=== PATIENT | male | born 1950 | race Caucasian/White ===

== ENCOUNTER 2024-03-02 16:20 | Emergency (ER) | payer MEDICARE, OTHER ==
[2024-03-02 16:36] VITALS: BP 167/86; O2SAT 100
--- NOTE | 2024-03-02 18:51 | ED Physician Documentation ---
History of Present Illness - Stated complaint Stated Complaint: RT HAND LAC/HEAD INJ - Chief complaint Chief Complaint: Laceration - History obtained from History obtained from: Patient, Family () - History of Present Illness Timing: Prior to arrival - Additonal information Additional information: Patient is a 73-year-old male presenting to the emergency department after about an hour prior to arrival patient was on a tractor when he stepped out he slipped and fell about 3 feet to the ground. He is sustained small abrasion to his right ear where his glasses sit and laceration to his right base of his thumb. He notes persistent bleeding but no numbness or tingling.Patient did not lose consciousness he is not on blood thinners. He denies any neck pain. PD PAST MEDICAL HISTORY - Past Medical History Past Medical History: Yes Cardiovascular: High cholesterol Respiratory: None Neuro: None Endocrine/Autoimmune: None GI: None : None HEENT: None Psych: None Musculoskeletal: Chronic back pain Derm: None - Past Surgical History Past Surgical History: Yes Ortho: Shoulder arthroplasty, Spine surgery - Present Medications Home Medications: Ambulatory Orders Medication Instructions Recorded Confirmed Atorvastatin [Lipitor] 20 mg PO QPM 03/02/24 03/02/24 Bacitracin Zinc Oint 1 applic TOP BID #1 each 03/02/24 Cyclobenzaprine [Flexeril] 10 mg PO TID PRN 03/02/24 03/02/24 Gabapentin [Neurontin] 600 mg PO HS 03/02/24 03/02/24 Meloxicam 15 mg PO DAILY PRN 03/02/24 03/02/24 - Allergies Allergies/Adverse Reactions: Allergies Allergy/AdvReac Type Severity Reaction Status Date / Time erythromycin base Allergy Itching Verified 03/02/24 16:24 meperidine [From Demerol] Allergy Itching Verified 03/02/24 16:24 - Social History Does the pt smoke?: Yes Smoking Status: Current every day smoker Does the pt drink ETOH?: Yes Does the pt have substance abuse?: Yes Substance Use and Type: Marijuana - Immunizations Immunizations are current?: Yes - POLST Patient has POLST: No PD ED PE NORMAL - Vitals Vital signs reviewed: Yes - General General: Alert and oriented X 3 - HEENT HEENT: Atraumatic, Other (Right abrasion to lateral portion of right head. No signs of bleeding, no signs of hematoma) - Neck Neck: Supple, no meningeal sign, C-Spine cleared by NEXUS criteria - Cardiac Cardiac: RRR, No murmur, No gallop, No rub - Respiratory Respiratory: No respiratory distress, Clear bilaterally - Abdomen Abdomen: Normal bowel sounds, Non tender, Non distended - Derm Derm: Normal color - Extremities Extremities: No deformity, Other (Laceration approximately 3 cm to base of right thumb minimal bleeding On examination. No signs of contamination. Wound is linear in size.) - Neuro Neuro: Alert and oriented X 3, opener 2-12 intact Eye Opening: Spontaneous Motor: Obeys Commands Verbal: Oriented GCS Score: 15 - Free text exam Free text exam: Patient is full range of motion to normal DIP and MCP joint of right thumb good capillary refill good sensation intact distally. Radial pulse 2+ full range of motion of right wrist intact full sensation intact to digits 2 through 5 as well. Results - Vitals Vitals: Vital Signs - 24 hr 03/02/24 16:24 Temperature 36.2 C L Heart Rate 67 Respiratory 16 Rate Blood Pressure 167/86 H O2 Saturation 100 Oxygen O2 Source Room air Procedures - Laceration (location) Finger left Anterior Length in cm: 3 Wound type: Linear Neurovascular status: Sensory intact, Motor intact, Vascular intact, Other Tendon involvement: Tendon intact Anesthesia: Lidocaine 1% Wound preparation: Irrigated copiously NS Skin layer closure: Nylon, Sutures - enter # (5) Other: Patient tolerated well, No complications, Dressing applied, Tetanus UTD PD Medical Decision Making - ED course Complexity details: reviewed old records ED course: Patient is a 73-year-old male presenting to the emergency department with right hand laceration Chin. Patient was on a tractor and slipped off cutting his hand on the tractor and hitting his head. He sustained small abrasion to right ear but no active bleeding on arrival. Physical exam shows minimal bleeding to right thumb laceration at base of thumb full range of motion full sensation and good strength intact to right thumb. Good capillary refill appreciated. Given patient's head injury he is not on any blood thinners and did not lose consciousness but fell greater than 3 feet and is over 70 years old.C-spine was cleared with Nexus criteria. No acute intracranial pathology. CT scan of head reassuring with no acute findings. Patient wound laceration repair here in the emergency department. Patient received 5 stitches see procedure note above. Patient tolerated procedure well. Instructed patient keep wound clean and dry follow-up with PCP in 14 days for reevaluation. Patient instructed to return with any redness swelling warmth fevers discharge numbness tingling or difficulty flexing or extending digit. Departure - Departure Disposition: 01 Home, Self Care Clinical Impression: Laceration of right thumb, Laceration Condition: Good Instructions: ED Laceration All Prescriptions: Bacitracin Zinc Oint 1 applic TOP BID #1 each Comments: Come back for any signs of infection which would include: Redness, swelling, drainage, increased pain, or fevers. You can wash it soap and water. Keep it covered and moist with bacitracin ointment which is available over the counter; avoid neosporin. Follow-up with your physician in [14] days for suture removal. Forms: PCP List Discharge Date/Time: 03/02/24 20:31
[2024-03-02] MEDS: lidocaine 1% 20 ML MDV SUBQ ONE (19:36)
--- NOTE | 2024-03-02 19:39 | CT Report ---
PROCEDURE: Head WO INDICATIONS: head pain post fall > 3 ft TECHNIQUE: Noncontrast 4.5 mm thick angled axial sections acquired from the foramen magnum to the vertex. For r adiation dose reduction, the following was used: automated exposure control, adjustment of mA and/or kV according to patient size. COMPARISON: None. FINDINGS: Image quality: Excellent. CSF spaces: Basal cisterns are patent. No extra-axial fluid collections. Ventricles are normal in size and shape. Brain: No midline shift. No intracranial masses or hemorrhage. Gruber-white matter interface is norm al. Skull and face: Calvarium and visualized facial bones are intact, without suspicious lesions. Sinuses: Mild partial opacification of the right maxillary sinus. IMPRESSION: No acute intracranial pathology. Reviewed by: Abelardo Hammonds MD on 03/02/2024 7:38 PM PDT Approved by: Abelardo Hammonds MD on 03/02/2024 7:38 PM PDT Station ID: [id number]
== END 2024-03-02 20:31 | disposition home or self-care (01) ==
LOC: ED 16:20
DX: S61.011A Laceration without foreign body of right thumb without damage to nail, initial encounter (principal); S09.90XA Unspecified injury of head, initial encounter; S00.411A Abrasion of right ear, initial encounter; W17.89XA Other fall from one level to another, initial encounter; E78.00 Pure hypercholesterolemia, unspecified; F17.200 Nicotine dependence, unspecified, uncomplicated; Z79.899 Other long term (current) drug therapy
CPT/HCPCS: 12002; 99283; 99284

== ENCOUNTER 2024-03-22 11:06 | Outpatient (CLI) | payer MEDICARE, OTHER ==
[2024-03-22 13:13] LABS: BASOPHILS # (AUTO) 0.1 10^3/uL (0.0-0.1); BASOPHILS % (AUTO) 0.8 %; EOSINOPHILS # (AUTO) 0.8 10^3/uL (0.0-0.7); EOSINOPHILS % (AUTO) 6.5 %; HCT - HEMATOCRIT 49.2 % (42.0-52.0); HGB - HEMOGLOBIN 15.9 g/dL (14.0-18.0); LYMPHOCYTES # (AUTO) 3.9 10^3/uL (1.5-3.5); LYMPHOCYTES % (AUTO) 33.5 %; MEAN CORPUSCULAR HEMOGLOBIN 29.5 pg (27.0-31.0); MEAN CORPUSCULAR HGB CONC 32.3 g/dL (32.0-36.0); MEAN CORPUSCULAR VOLUME 91.3 fL (80.0-94.0); MEAN PLATELET VOLUME 9.6 fL (7.4-11.4); MONOCYTES # (AUTO) 0.5 10^3/uL (0.0-1.0); MONOCYTES % (AUTO) 4.7 %; NEUTROPHILS # (AUTO) 6.3 10^3/uL (1.5-6.6); NEUTROPHILS % (AUTO) 54.2 %; PLT - PLATELET COUNT 181 10^3/uL (130-450); RED BLOOD COUNT 5.39 10^6/uL (4.70-6.10); RED CELL DISTRIBUTION WIDTH 14.7 % (12.0-15.0); WHITE BLOOD COUNT 11.6 x10^3/uL (4.8-10.8)
[2024-03-22 13:21] LABS: CALCIUM 9.6 mg/dL (8.5-10.3); CREATININE 1.2 mg/dL (0.6-1.3); POTASSIUM 4.6 mmol/L (3.5-4.5)
[2024-03-22 20:12] LABS: ESTIMATED AVERAGE GLUCOSE 108 mg/dL (70-100); HEMOGLOBIN A1c% 5.4 % (4.27-6.07)
--- NOTE | 2024-03-24 10:43 | XRAY Report ---
PROCEDURE: Foot 3+V RT INDICATIONS: INFECTION OF BIG TOE TECHNIQUE: 3 views of the foot were acquired. COMPARISON: None. FINDINGS: Bones: No fractures or dislocations. No suspicious bony lesions. No cortical erosions or periostea l reaction. Soft tissues: No tibiotalar joint effusion. Achilles tendon appears normal. IMPRESSION: No acute bony abnormality. No radiographic evidence of acute osteomyelitis. Reviewed by: Camilla Singleton MD, PhD on 03/24/2024 10:42 AM PDT Approved by: Camilla Singleton MD, PhD on 03/24/2024 10:42 AM PDT Station ID: [id number]
== END 2024-03-22 11:07 | disposition home or self-care (01) ==
LOC: DI 11:06
PROVIDERS: ATTEND Emergency Medicine
DX: L08.9 Local infection of the skin and subcutaneous tissue, unspecified (principal); B99.9 Unspecified infectious disease
CPT/HCPCS: 36415; 80048; 83036; 85025